=== PATIENT | male | born 1970 | race Caucasian/White ===

== ENCOUNTER → 2018-05-19 | Outpatient (CLI) | payer OTHER ==
[~2018-05-19] MED LIST: ALBU90OI61 INH; CYCL10 PO; Crutch1 EACH MISC; Cyclobenzaprine5 MG PO; Flovent Diskus50 MCG INH; HYDACE5 PO; HYDACE5325 PO; IBUP600 PO; KETO10 PO; LISI10 PO; LISI20 PO; LISI5 PO; METO25ER PO; NAPR500 PO; Naprosyn500 MG PO; Norco 5-325 Ta1 EACH PO; ONDA4 PO; OXYACE5T PO; OXYC5; PARO10 PO; PENVK500 PO; PROM12.5S PR; PROM25 PO; Percocet 5-3251 EACH PO; RXOXYACE PO; RXPROM12.S PR; RXPROM25 PO; Robaxin500 MG PO; SERT50 PO; Silvadene20 GM TOP; [UNRECOGNIZED DRUG - OTHER] PO; [UNRECOGNIZED DRUG - OTHER] PO
[2018-05-19 17:04] LABS: Alanine Aminotransfer (ALT/SGP 153 U/L (12-78); Albumin, Blood 3.9 g/dL (3.4-5.0); Albumin/Globulin Ratio 0.9 (0.8-1.8); Alk Phos 94 U/L (40-126); Anion Gap 8 mmol/L (6-16); Aspartate Aminotrans (AST/SGOT 73 U/L (12-37); Bilirubin, Total 0.7 mg/dL (0.1-1.0); Blood Urea Nitrogen 10 mg/dL (8-24); Bun/Creatinine Ratio 10.4 (12.0-20.0); CO2, Blood 29 mmol/L (21-32); Calcium, Blood 9.2 mg/dL (8.5-10.1); Chloride, Blood 100 mmol/L (98-108); Creatinine, Blood 0.96 mg/dL (0.60-1.20); Globulin, Blood 4.4 g/dL (2.2-4.0); Glomerular Filtration Rate >60 (60-); Glucose, Blood 102 mg/dL (70-99); Potassium, Blood 4.9 mmol/L (3.5-5.5); Sodium, Blood 137 mmol/L (136-145); Thyroid Stimulating Hormone 1.742 uIU/mL (0.360-4.800); Total Protein, Blood 8.3 g/dL (6.4-8.2)
== END | disposition home or self-care (01) ==
LOC: LAB EV 16:41 → LAB SHORT 16:41
PROVIDERS: Family Medicine
DX: I10 Essential (primary) hypertension (principal)
CPT/HCPCS: 80053; 84443

== ENCOUNTER → 2020-12-08 | Outpatient (CLI) | payer OTHER ==
[~2020-12-08] MED LIST changes: +ASPI81CH PO; +NARCAN4 M1 UD; +OXYC5 PO; +ZESTRIL40 M1 PO
[2020-12-11 00:09] LABS: CHLAMYDIA TRACHOMATIS, NAA Negative (Negative)
== END | disposition home or self-care (01) ==
LOC: LAB SHORT 16:07 → LAB 16:07
PROVIDERS: Internal Medicine
DX: Z11.3 Encounter for screening for infections with a predominantly sexual mode of transmission (principal); Z91.89 Other specified personal risk factors, not elsewhere classified
CPT/HCPCS: 87086; 87491; 87591

== ENCOUNTER 2022-01-22 23:02 | Emergency (ER) | payer OTHER ==
[~2022-01-22] VITALS: Ht 175.3 cm; Wt 77.1 kg
[2022-01-22] MEDS ORDERED: SULTRIDS PO (23:53)
== END 2022-01-23 00:15 | disposition home or self-care (01) ==
LOC: ER 23:02
DX: L03.113 Cellulitis of right upper limb (principal); L02.413 Cutaneous abscess of right upper limb; E11.9 Type 2 diabetes mellitus without complications; I10 Essential (primary) hypertension; Z87.891 Personal history of nicotine dependence
CPT/HCPCS: A9270

== ENCOUNTER 2022-12-31 14:11 | Emergency (ER) | payer OTHER ==
[~2022-12-31] VITALS: Ht 172.7 cm; Wt 76.2 kg
[~2022-12-31 14:11] MED LIST changes: +SULTRIDS PO
[2022-12-31 14:18] VITALS: BP 158/129
[2022-12-31] MEDS ORDERED: PRED20 PO (14:27)
== END 2022-12-31 14:35 | disposition home or self-care (01) ==
LOC: ER 14:11
DX: L23.7 Allergic contact dermatitis due to plants, except food (principal); Z88.8 Allergy status to other drugs, medicaments and biological substances; Z79.899 Other long term (current) drug therapy; I10 Essential (primary) hypertension; E11.9 Type 2 diabetes mellitus without complications; Z87.891 Personal history of nicotine dependence
CPT/HCPCS: 99282

== ENCOUNTER 2023-04-27 01:37 | Emergency (ER) | payer OTHER ==
[~2023-04-27] VITALS: Ht 175.3 cm; Wt 81.7 kg
[~2023-04-27 01:37] MED LIST changes: +PRED20 PO
[2023-04-27] MEDS ORDERED: SULTRIDS PO (02:03)
[2023-04-27] MEDS ORDERED: CEPH500 PO (02:03)
[2023-04-27 02:24] VITALS: BP 148/92
== END 2023-04-27 02:25 | disposition home or self-care (01) ==
LOC: ER 01:37
DX: L03.116 Cellulitis of left lower limb (principal); I10 Essential (primary) hypertension
CPT/HCPCS: 90471; 90714; 99283-25; A9270

== ENCOUNTER 2024-09-28 21:27 | Emergency (ER) | payer OTHER ==
[~2024-09-28] VITALS: Ht 175.3 cm; Wt 70.3 kg
[~2024-09-28 21:27] MED LIST changes: +CEPH500 PO
[2024-09-28 21:40] VITALS: BP 175/118
[2024-09-29] MEDS ORDERED: Dexamethasone Sod Phos 10 MG/ML 1ML VIAL PO ONE (00:40)
[2024-09-29] MEDS ORDERED: Naproxen 250 MG TAB PO ONE (00:40)
[2024-09-29] MEDS ORDERED: CYCL10 PO (00:43)
[2024-09-29] MEDS ORDERED: NAPR500 PO (00:43)
== END 2024-09-29 01:10 | disposition home or self-care (01) ==
LOC: ER 21:27
DX: S39.012A Strain of muscle, fascia and tendon of lower back, initial encounter (principal); S29.012A Strain of muscle and tendon of back wall of thorax, initial encounter; M54.16 Radiculopathy, lumbar region; I10 Essential (primary) hypertension; E11.9 Type 2 diabetes mellitus without complications; Z79.2 Long term (current) use of antibiotics; Z79.899 Other long term (current) drug therapy; Z87.891 Personal history of nicotine dependence; W17.89XA Other fall from one level to another, initial encounter
CPT/HCPCS: 99282; A9270; J1100

== ENCOUNTER → 2024-10-05 | Outpatient (CLI) | payer OTHER ==
[2024-10-05 16:50] LABS: U Amphetamine Screen DETECTED; U Barbituate Screen Not Detected; U Benzodiazapine Screen Not Detected; U Buprenorphine Screen Not Detected; U Cannabinoids Screen DETECTED; U Cocaine Screen Not Detected; U Methadone Screen Not Detected; U Methamphetamine Screen DETECTED; U Opiates Screen Not Detected; U Oxycodone Screen Not Detected; U Phencyclidine Screen Not Detected
[2024-10-05 17:25] LABS: Chlamydia Trachomatis Urine NOT DETECTED (NOT DETECT); Neisseria Gonorrhoea Urine NOT DETECTED (NOT DETECT)
[2024-10-08 06:54] LABS: 11-NOR-9-CARBOXY-THC,URN,QUANT 283 ng/mL
[2024-10-09 02:57] LABS: AMPHETAMINE,URN,QUANT 1067 ng/mL; MDA,URN,QUANT <200 ng/mL; MDEA,URN,QUANT <200 ng/mL; MDMA,URN,QUANT <200 ng/mL; METHAMPHETAMINE,URN,QUANT >10000 ng/mL; PHENTERMINE,URN,QUANT <200 ng/mL
== END | disposition home or self-care (01) ==
LOC: LAB 12:57 → LAB SHORT 12:57
PROVIDERS: Physician Assistant Medical
DX: Z11.3 Encounter for screening for infections with a predominantly sexual mode of transmission (principal); F15.10 Other stimulant abuse, uncomplicated
CPT/HCPCS: 87491; 87591; G0480

== ENCOUNTER 2025-03-21 19:55 | Inpatient (IN) | payer OTHER ==
[~2025-03-21] VITALS: Ht 175.3 cm; Wt 74.2 kg
[2025-03-21 20:36] LABS: BASOPHILS ABSOLUTE AUTO 0.06 K/mm3 (0.00-0.23); BASOPHILS PERCENT AUTO 1 % (0-2); EOSINOPHILS ABSOLUTE AUTO 0.17 K/mm3 (0.00-0.68); EOSINOPHILS PERCENT AUTO 2 % (0-6); Hematocrit 43.4 % (37.0-53.0); Hemoglobin 13.7 g/dL (13.5-17.5); IMMATURE GRAN ABSOLUTE AUTO 0.03 K/mm3 (0.00-0.10); IMMATURE GRAN PERCENT AUTO 0 % (0-1); LYMPHOCYTES ABSOLUTE AUTO 1.94 K/mm3 (0.84-5.20); LYMPHOCYTES PERCENT AUTO 21 % (21-46); MONOCYTES ABSOLUTE AUTO 0.70 K/mm3 (0.16-1.47); MONOCYTES PERCENT AUTO 8 % (4-13); Mean Corpuscular HGB Conc 31.6 g/dL (31.5-36.5); Mean Corpuscular Volume 91 fL (80-100); NEUTROPHILS ABSOLUTE AUTO 6.47 K/mm3 (1.96-9.15); NEUTROPHILS PERCENT AUTO 69 % (41-73); NRBC ABSOLUTE 0.00 K/mm3 (0.00-0.02); NRBC Auto 0.0 /100 WBC (0.0-0.2); Platelet Count 319 K/mm3 (150-400); RDW Coefficient Variation 14.6 % (11.7-14.2); RDW Standard Deviation 48.5 fL (35.1-46.3)
[2025-03-21 20:57] LABS: Alanine Aminotransfer (ALT/SGP 30.0 U/L (12-78); Albumin, Blood 3.4 g/dL (3.4-5.0); Albumin/Globulin Ratio 0.9 (0.8-1.8); Anion Gap 9.0 mmol/L (3-11); Aspartate Aminotrans (AST/SGOT 27.0 U/L (12-37); Bilirubin, Total 0.8 mg/dL (0.1-1.0); Blood Urea Nitrogen 18.0 mg/dL (8-24); CO2, Blood 26.0 mmol/L (21-32); Calcium, Blood 9.3 mg/dL (8.5-10.1); Chloride, Blood 104.0 mmol/L (98-108); Creatinine, Blood 0.97 mg/dL (0.60-1.20); Globulin, Blood 3.6 g/dL (2.2-4.0); Glucose, Blood 115.0 mg/dL (70-99); Potassium, Blood 4.5 mmol/L (3.5-5.5); Sodium, Blood 134.0 mmol/L (136-145); Total Protein, Blood 7.0 g/dL (6.4-8.2)
[2025-03-21 21:18] LABS: Influenza A, PCR NEGATIVE (NEGATIVE); Influenza B, PCR NEGATIVE (NEGATIVE); Resp Syncytial Virus, PCR NEGATIVE (NEGATIVE); SARS-Cov-2 (COVID-19) PCR, MMC NEGATIVE (NEGATIVE)
[2025-03-21] MEDS ORDERED: FLU VACC TS2025-26(6MOS UP)/PF 45 MCG/0.5 ML SYRINGE IM SCH (22:50)
[2025-03-21] MEDS ORDERED: Ondansetron HCl 2 MG / ML 2ML Vial IV PRN (22:50)
[2025-03-21] MEDS ORDERED: Enoxaparin 40 MG/0.4 ML SYR SC SCH (23:00)
[2025-03-21 23:03] LABS: Source, Urine Clean Catch
[2025-03-21 23:10] LABS: Bilirubin, Urine Neg (Neg); Glucose Qualitative, Urine Neg (Neg); Ketones, Urine Neg (Neg); Leukocyte Esterase, Urine 2+ (Neg); Protein, Urine 2+ (Neg); Specific Gravity, Urine 1.015 (1.003-1.022); Urobilinogen, Urine NORM (Normal)
[2025-03-21 23:16] LABS: Color, Urine Yellow (P-Yellow)
[2025-03-21 23:18] LABS: Red Blood Cells, Urine Not Seen /hpf (0-2)
[2025-03-21 23:20] LABS: U Amphetamine Screen DETECTED; U Barbiturate Screen Not Detected; U Benzodiazapine Screen DETECTED; U Buprenorphine Screen Not Detected; U Cannabinoids Screen DETECTED; U Cocaine Screen Not Detected; U Methadone Screen Not Detected; U Methamphetamine Screen DETECTED; U Opiates Screen Not Detected; U Oxycodone Screen Not Detected; U Phencyclidine Screen Not Detected
[2025-03-21 23:23] LABS: Magnesium, Blood 2.1 mg/dL (1.6-2.4); Phosphorus, Blood 3.1 mg/dL (2.5-4.9)
[2025-03-22] MEDS ORDERED: HydrALAZINE HCl 20 MG / ML 1ML Vial IV PRN (02:30)
[2025-03-22 05:51] LABS: BASOPHILS ABSOLUTE AUTO 0.06 K/mm3 (0.00-0.23); BASOPHILS PERCENT AUTO 1 % (0-2); EOSINOPHILS ABSOLUTE AUTO 0.21 K/mm3 (0.00-0.68); EOSINOPHILS PERCENT AUTO 3 % (0-6); Hematocrit 41.1 % (37.0-53.0); Hemoglobin 13.3 g/dL (13.5-17.5); IMMATURE GRAN ABSOLUTE AUTO 0.02 K/mm3 (0.00-0.10); IMMATURE GRAN PERCENT AUTO 0 % (0-1); LYMPHOCYTES ABSOLUTE AUTO 2.07 K/mm3 (0.84-5.20); LYMPHOCYTES PERCENT AUTO 25 % (21-46); MONOCYTES ABSOLUTE AUTO 0.64 K/mm3 (0.16-1.47); MONOCYTES PERCENT AUTO 8 % (4-13); Mean Corpuscular HGB Conc 32.4 g/dL (31.5-36.5); Mean Corpuscular Volume 88 fL (80-100); NEUTROPHILS ABSOLUTE AUTO 5.35 K/mm3 (1.96-9.15); NEUTROPHILS PERCENT AUTO 64 % (41-73); NRBC ABSOLUTE 0.00 K/mm3 (0.00-0.02); NRBC Auto 0.0 /100 WBC (0.0-0.2); Platelet Count 298 K/mm3 (150-400); RDW Coefficient Variation 14.6 % (11.7-14.2); RDW Standard Deviation 46.5 fL (35.1-46.3)
[2025-03-22 06:19] LABS: Alanine Aminotransfer (ALT/SGP 26.0 U/L (12-78); Albumin, Blood 3.2 g/dL (3.4-5.0); Albumin/Globulin Ratio 0.9 (0.8-1.8); Anion Gap 9.0 mmol/L (3-11); Aspartate Aminotrans (AST/SGOT 25.0 U/L (12-37); Bilirubin, Total 1.0 mg/dL (0.1-1.0); Blood Urea Nitrogen 20.0 mg/dL (8-24); CO2, Blood 27.0 mmol/L (21-32); Calcium, Blood 9.1 mg/dL (8.5-10.1); Chloride, Blood 103.0 mmol/L (98-108); Creatinine, Blood 1.05 mg/dL (0.60-1.20); Globulin, Blood 3.5 g/dL (2.2-4.0); Glucose, Blood 100.0 mg/dL (70-99); Potassium, Blood 3.7 mmol/L (3.5-5.5); Sodium, Blood 135.0 mmol/L (136-145); Total Protein, Blood 6.7 g/dL (6.4-8.2)
[2025-03-22 07:52] VITALS: BP 155/115
[2025-03-22 11:30] VITALS: BP 137/100
[2025-03-22 16:43] VITALS: BP 154/112
[2025-03-22 20:21] VITALS: BP 156/113
[2025-03-22] MEDS ORDERED: Sacubitril/Valsartan 49 MG/51 MG Tab PO SCH (21:00)
[2025-03-22 23:23] VITALS: BP 162/113
--- NOTE | 2025-03-22 23:31 | NUR ---
TRANSFER TO 226 REPORT RECIEVED FROM TOP LIFT SCOURER. PT ARRIVED TO UNIT AT 2330. AAOX4 AND PLEASANT. VITALS OBTAINED, REMAINS HYPERTENSIVE BUT OTHER VSS. PT DENIES SOB AT THIS TIME AND STATES "I FEEL SO MUCH BETTER THAN WHEN I CAME IN YESTERDAY". ON RA SATTING 97%. PT UP TO BATHROOM INDEPENDENTLY TO VOID. GIVEN SANDWICH AND CHEESE. PT DENIES OTHER NEEDS AT THIS TIME.
[2025-03-23 04:40] VITALS: BP 124/98
--- NOTE | 2025-03-23 05:19 | NUR ---
PLASTIC WELDER SUMMARY NO ACUTE CHANGES SINCE PT WAS TRANSFERED TO UNIT. AAOX4 AND PLEASNT. INDEPENDENT IN ROOM. PT CONTINUES TO REPORT IMPROVED RESPIRATORY STATUS. HAS MAINTAINED O2 SATS >90% ON RA THROUGH THE NIGHT. BP IMPROVED WITH MORNING VITALS TO 120'S OVER 90'S. VSS, WCTM.
[2025-03-23 05:38] LABS: BASOPHILS ABSOLUTE AUTO 0.07 K/mm3 (0.00-0.23); BASOPHILS PERCENT AUTO 1 % (0-2); EOSINOPHILS ABSOLUTE AUTO 0.24 K/mm3 (0.00-0.68); EOSINOPHILS PERCENT AUTO 2 % (0-6); Hematocrit 47.5 % (37.0-53.0); Hemoglobin 15.7 g/dL (13.5-17.5); IMMATURE GRAN ABSOLUTE AUTO 0.03 K/mm3 (0.00-0.10); IMMATURE GRAN PERCENT AUTO 0 % (0-1); LYMPHOCYTES ABSOLUTE AUTO 2.02 K/mm3 (0.84-5.20); LYMPHOCYTES PERCENT AUTO 19 % (21-46); MONOCYTES ABSOLUTE AUTO 0.86 K/mm3 (0.16-1.47); MONOCYTES PERCENT AUTO 8 % (4-13); Mean Corpuscular HGB Conc 33.1 g/dL (31.5-36.5); Mean Corpuscular Volume 86 fL (80-100); NEUTROPHILS ABSOLUTE AUTO 7.57 K/mm3 (1.96-9.15); NEUTROPHILS PERCENT AUTO 70 % (41-73); NRBC ABSOLUTE 0.00 K/mm3 (0.00-0.02); NRBC Auto 0.0 /100 WBC (0.0-0.2); Platelet Count 353 K/mm3 (150-400); RDW Coefficient Variation 14.2 % (11.7-14.2); RDW Standard Deviation 44.4 fL (35.1-46.3)
[2025-03-23 06:22] LABS: Alanine Aminotransfer (ALT/SGP 27.0 U/L (12-78); Albumin, Blood 3.2 g/dL (3.4-5.0); Albumin/Globulin Ratio 0.9 (0.8-1.8); Anion Gap 8.0 mmol/L (3-11); Aspartate Aminotrans (AST/SGOT 24.0 U/L (12-37); Bilirubin, Total 0.9 mg/dL (0.1-1.0); Blood Urea Nitrogen 29.0 mg/dL (8-24); CO2, Blood 30.0 mmol/L (21-32); Calcium, Blood 9.0 mg/dL (8.5-10.1); Chloride, Blood 101.0 mmol/L (98-108); Creatinine, Blood 1.1 mg/dL (0.60-1.20); Globulin, Blood 3.7 g/dL (2.2-4.0); Glucose, Blood 106.0 mg/dL (70-99); Potassium, Blood 3.6 mmol/L (3.5-5.5); Sodium, Blood 135.0 mmol/L (136-145); Total Protein, Blood 6.9 g/dL (6.4-8.2)
[2025-03-23 07:25] VITALS: BP 138/96
[2025-03-23 14:54] VITALS: BP 140/96
--- NOTE | 2025-03-23 18:06 | NUR ---
SHIFT SUMMARY PT HAD AN UNEVENTFUL DAY, SLEPT OFF AND ON T/O THE SHIFT, MEDS PER EMAR. NO ACUTE EVENTS THIS SHIFT, CALL LIGHT IN REACH.
[2025-03-23 21:03] VITALS: BP 141/99
[2025-03-24] VITALS (7 sets, daily range): BP systolic 123–158; BP diastolic 80–111
--- NOTE | 2025-03-24 03:11 | NUR ---
PT O2 SAT DECREASED TO 88% WHILE SLEEPING. PLACED PT ON 2L O2 VIA NC. SPO2 CURRENTLY 95%.
[2025-03-24 04:54] LABS: BASOPHILS ABSOLUTE AUTO 0.10 K/mm3 (0.00-0.23); BASOPHILS PERCENT AUTO 1 % (0-2); EOSINOPHILS ABSOLUTE AUTO 0.26 K/mm3 (0.00-0.68); EOSINOPHILS PERCENT AUTO 2 % (0-6); Hematocrit 48.9 % (37.0-53.0); Hemoglobin 16.1 g/dL (13.5-17.5); IMMATURE GRAN ABSOLUTE AUTO 0.03 K/mm3 (0.00-0.10); IMMATURE GRAN PERCENT AUTO 0 % (0-1); LYMPHOCYTES ABSOLUTE AUTO 2.63 K/mm3 (0.84-5.20); LYMPHOCYTES PERCENT AUTO 22 % (21-46); MONOCYTES ABSOLUTE AUTO 1.04 K/mm3 (0.16-1.47); MONOCYTES PERCENT AUTO 9 % (4-13); Mean Corpuscular HGB Conc 32.9 g/dL (31.5-36.5); Mean Corpuscular Volume 86 fL (80-100); NEUTROPHILS ABSOLUTE AUTO 7.70 K/mm3 (1.96-9.15); NEUTROPHILS PERCENT AUTO 65 % (41-73); NRBC ABSOLUTE 0.00 K/mm3 (0.00-0.02); NRBC Auto 0.0 /100 WBC (0.0-0.2); Platelet Count 373 K/mm3 (150-400); RDW Coefficient Variation 14.4 % (11.7-14.2); RDW Standard Deviation 44.9 fL (35.1-46.3)
--- NOTE | 2025-03-24 04:57 | NUR ---
SHIFT SUMMARY A&O X4. PT PLEASANT AND COOPERATIVE W/CARE. PT INDEPENDENT IN ROOM. SR @91 PER BOAT MOTOR MECHANIC. PT SPO2 DESATURATED TO 88% WHILE SLEEPING. HOSPITALIST NOTIFIED AND ORDERS RECEIVED FOR CONTINUOUS PULSE OX AND TO MAINTAIN OXYGEN SATURATION EQUAL TO OR >90%. PLACED PT ON 2L O2 VIA NC, SPO2 CURRENTLY 95%. SBP 120s-140s, DBP IN THE 90s THIS SHIFT. PT RESTING IN BED, RESPIRATION EVEN AND UNLABORED. CALL LIGHT WITHIN REACH.
[2025-03-24 05:17] LABS: Alanine Aminotransfer (ALT/SGP 26.0 U/L (12-78); Albumin, Blood 3.3 g/dL (3.4-5.0); Albumin/Globulin Ratio 0.9 (0.8-1.8); Anion Gap 9.0 mmol/L (3-11); Aspartate Aminotrans (AST/SGOT 21.0 U/L (12-37); Bilirubin, Total 0.8 mg/dL (0.1-1.0); Blood Urea Nitrogen 37.0 mg/dL (8-24); CO2, Blood 27.0 mmol/L (21-32); Calcium, Blood 9.0 mg/dL (8.5-10.1); Chloride, Blood 103.0 mmol/L (98-108); Creatinine, Blood 1.4 mg/dL (0.60-1.20); Globulin, Blood 3.6 g/dL (2.2-4.0); Glucose, Blood 109.0 mg/dL (70-99); Potassium, Blood 3.8 mmol/L (3.5-5.5); Sodium, Blood 135.0 mmol/L (136-145); Total Protein, Blood 6.9 g/dL (6.4-8.2)
--- NOTE | 2025-03-24 11:33 | NUR ---
AM MEDS AM PO MEDS HELD D/T PATIENT C/O STOMACH DISCOMFORT STATING HE DIDN'T WANT TO TAKE ANY PILLS UNTIL HE WAS ABL ETO GET SOME STOMACH RELIEF. DISCUSSED WITH ATTENDING AND GOT NEW MED ORDERS, WILL GIVE AM MEDS AFTER ADMINISTRATION OF NEW MED IS DONE.
--- NOTE | 2025-03-24 19:17 | NUR ---
SHIFT SUMMARY NEW CHF DX THIS VISIT, PT HAD REPORTED SOME SOME STOMACH DISCOMFORT/UPSET AND WAS REFUSING HIS REGULAR AM PO MEDS. AFTER GIVIGN HIM HIS PEPTO WHICH WAS APPROVED BY ATTENDING, HE SLEPT ALMOST THE ENTIRE SHIFT TODAY HAVING MINIMAL FLUID INTAKE BUT AROUND DINNER HE WOKE UP AND STARTED DRINKING FLUIDS. DISCUSSED HIS KIDNEY WITH HIM AND REITERATED THE NEED TO HOLD SOME OF HIS CARDIAC MEDS BECAUSE OF THE KIDNEY FUNCTION. NO ACUTE EVENTS THIS SHIFT, CALL LIGHT IN REACH.
[2025-03-25 03:59] VITALS: BP 123/86
[2025-03-25 04:58] LABS: BASOPHILS ABSOLUTE AUTO 0.08 K/mm3 (0.00-0.23); BASOPHILS PERCENT AUTO 1 % (0-2); EOSINOPHILS ABSOLUTE AUTO 0.32 K/mm3 (0.00-0.68); EOSINOPHILS PERCENT AUTO 3 % (0-6); Hematocrit 48.9 % (37.0-53.0); Hemoglobin 15.9 g/dL (13.5-17.5); IMMATURE GRAN ABSOLUTE AUTO 0.03 K/mm3 (0.00-0.10); IMMATURE GRAN PERCENT AUTO 0 % (0-1); LYMPHOCYTES ABSOLUTE AUTO 2.57 K/mm3 (0.84-5.20); LYMPHOCYTES PERCENT AUTO 20 % (21-46); MONOCYTES ABSOLUTE AUTO 1.09 K/mm3 (0.16-1.47); MONOCYTES PERCENT AUTO 8 % (4-13); Mean Corpuscular HGB Conc 32.5 g/dL (31.5-36.5); Mean Corpuscular Volume 87 fL (80-100); NEUTROPHILS ABSOLUTE AUTO 8.82 K/mm3 (1.96-9.15); NEUTROPHILS PERCENT AUTO 68 % (41-73); NRBC ABSOLUTE 0.00 K/mm3 (0.00-0.02); NRBC Auto 0.0 /100 WBC (0.0-0.2); Platelet Count 392 K/mm3 (150-400); RDW Coefficient Variation 14.6 % (11.7-14.2); RDW Standard Deviation 46.1 fL (35.1-46.3)
--- NOTE | 2025-03-25 04:59 | NUR ---
SHIFT SUMMARY RICARDA WAS ALERT AND FULLY ORIENTED ON ASSESSMENT. PT DENIES PAIN, NAUSEA, CHEST PAIN AND SOB, STATES THAT BREATHING FEELS BASELINE. PT IND IN ROOM. UNEVENTFUL NIGHT FOR THIS PT. NO ACUTE EVENTS. PT SLEPT ALL NIGHT.
[2025-03-25 05:21] LABS: Alanine Aminotransfer (ALT/SGP 24.0 U/L (12-78); Albumin, Blood 3.2 g/dL (3.4-5.0); Albumin/Globulin Ratio 0.9 (0.8-1.8); Anion Gap 9.0 mmol/L (3-11); Aspartate Aminotrans (AST/SGOT 21.0 U/L (12-37); Bilirubin, Total 0.6 mg/dL (0.1-1.0); Blood Urea Nitrogen 34.0 mg/dL (8-24); CO2, Blood 26.0 mmol/L (21-32); Calcium, Blood 8.7 mg/dL (8.5-10.1); Chloride, Blood 105.0 mmol/L (98-108); Creatinine, Blood 1.29 mg/dL (0.60-1.20); Globulin, Blood 3.5 g/dL (2.2-4.0); Glucose, Blood 119.0 mg/dL (70-99); Potassium, Blood 4.0 mmol/L (3.5-5.5); Sodium, Blood 136.0 mmol/L (136-145); Total Protein, Blood 6.7 g/dL (6.4-8.2)
[2025-03-25 08:56] VITALS: BP 161/98
[2025-03-25] MEDS ORDERED: JARDIANCE10 MG PO (11:03)
[2025-03-25] MEDS ORDERED: ASPI81CH PO (11:03)
[2025-03-25] MEDS ORDERED: ENTRESTO 49 MG1 EACH PO (11:04)
[2025-03-25] MEDS ORDERED: METO50ER PO (11:04)
[2025-03-25] MEDS ORDERED: SPIR25 PO (11:05)
--- NOTE | 2025-03-25 12:17 | NUR ---
TELE BOX RETURNED TO PCU.
[2025-03-25 14:33] VITALS: BP 125/87
--- NOTE | 2025-03-25 15:00 | NUR ---
DC INSTRUCT REVIEWED. STATED UNDERSTANDING. DISCHARGED TO SELF CARE.
== END 2025-03-25 15:02 | disposition home or self-care (01) | DRG 291 ==
LOC: ER 19:55 → ERHOLD 19:56 → PCU 19:56 → SURS 03-22 23:11
PROVIDERS: Emergency Medicine; Family Medicine; ADMIT Internal Medicine
PROC: 5A09357 Assistance with Respiratory Ventilation, Less than 24 Consecutive Hours, Continuous Positive Airway Pressure (ICD-10-PCS; principal; 2025-03-21)
PROC: 3E02340 Introduction of Influenza Vaccine into Muscle, Percutaneous Approach (ICD-10-PCS; 2025-03-21)
DX: I11.0 Hypertensive heart disease with heart failure (principal); I50.21 Acute systolic (congestive) heart failure; N17.9 Acute kidney failure, unspecified; F17.210 Nicotine dependence, cigarettes, uncomplicated; E11.9 Type 2 diabetes mellitus without complications; I42.7 Cardiomyopathy due to drug and external agent; T43.655A Adverse effect of methamphetamines, initial encounter; G43.909 Migraine, unspecified, not intractable, without status migrainosus; F15.10 Other stimulant abuse, uncomplicated; F10.10 Alcohol abuse, uncomplicated; F12.10 Cannabis abuse, uncomplicated; Z87.81 Personal history of (healed) traumatic fracture; Z91.048 Other nonmedicinal substance allergy status; Z79.52 Long term (current) use of systemic steroids; Z79.899 Other long term (current) drug therapy; Z79.2 Long term (current) use of antibiotics; Z23 Encounter for immunization
CPT/HCPCS: 36415; 71046; 80053; 81001; 83735; 83880; 84100; 84484; 85025; 87086; 87637; 93005; 93010; 93306; 94762; 96372; 96374; 96376; 99285-25; A9270; G0378; J1650; J1938; J2405